=== PATIENT | male | born 1985 | race Caucasian/White ===

== ENCOUNTER 2021-04-24 06:44 | Day surgery (SDC) | payer BC ==
[2021-04-21 13:06] LABS: Basophils # (auto) 0.1 10 ^3/uL (0-0.2); Basophils % (auto) 1.3 % (0.0-2.0); Eosinophils # (auto) 0.1 10 ^3/uL (0-0.8); Eosinophils % (auto) 2.5 % (0.0-7.0); Hematocrit 46.6 % (41.0-53.0); Hemoglobin 16.3 g/dL (13.5-17.5); Lymphocytes # (auto) 1.4 10 ^3/uL (0.4-5.4); Lymphocytes % (auto) 26.3 % (10.0-50.0); Mean Corpuscular Hemoglobin 32.4 pg (28.0-32.0); Mean Corpuscular Volume 92.7 fL (80.0-100.0); Monocytes # (auto) 0.5 10 ^3/uL (0-1.3); Monocytes % (auto) 8.5 % (0.0-12.0); Neutrophils # (auto) 3.4 10 ^3/uL (1.6-8.6); Neutrophils % (auto) 61.4 % (37.0-80.0); Nucleated Red Blood Cells % 0.2 %; Red Blood Cells 5.03 10^6/uL (4.5-5.90); White Blood Cell 5.5 10^3/uL (4.4-10.8)
[2021-04-21 13:26] LABS: Urine Bacteria FEW /hpf (None Seen); Urine Blood Negative /uL (Negative); Urine Mucus FEW (None Seen); Urine Specific Gravity 1.023 (1.001-1.035); Urine WBC 1 /hpf (0 - 3)
[2021-04-21 13:35] LABS: Albumin 4.1 g/dL (3.4-5.0); Calcium 8.9 mg/dL (8.5-10.1); Potassium 3.7 mmol/L (3.5-5.1)
[2021-04-21 13:39] LABS: Bilirubin, Total 0.3 mg/dL (0.2-1.0); Total Protein 7.6 g/dL (6.4-8.2)
[~2021-04-24] VITALS: Ht 182.9 cm; Wt 83.0 kg
[2021-04-24] MEDS ORDERED: CIPROFLOXACIN 400MG/200ML 0 ML IV ONE (08:17)
[2021-04-24] MEDS ORDERED: ceFAZolin 1GM/50ML 50 ML IV ONE (08:33)
[2021-04-24] MEDS ORDERED: LIDOCAINE W/ EPINEPHRINE 1% 20ML VIAL ONE (09:04)
[2021-04-24] MEDS ORDERED: NEOMYCIN-BACITRACIN-POLYM 15GM TOP OINT TOP ONE (09:04)
[2021-04-24] MEDS ORDERED: MIDAZOLAM HCL 2MG/2ML 2ml VIAL (1mg/ml) ONE (09:16)
[2021-04-24] MEDS ORDERED: PROPOFOL 10 MG/ML 20 ML IV ONE (09:17)
[2021-04-24] MEDS ORDERED: ONDANSETRON HCL 4 MG/2 ML VIAL ONE (09:17)
[2021-04-24] MEDS ORDERED: GLYCOPYRROLATE 0.2 MG/ML 1ML VIAL ONE (09:17)
[2021-04-24] MEDS ORDERED: fentaNYL CITRATE 100 MCG/2 ML VL ONE (09:17)
[2021-04-24] MEDS ORDERED: KETOROLAC TROMETH 30 MG/ML 1ML VIAL ONE (09:17)
[2021-04-24] MEDS ORDERED: LIDOCAINE 2% (LOCAL ANESTH.) PF 5ml SDV ONE (09:17)
[2021-04-24] MEDS ORDERED: MIDAZOLAM HCL 2MG/2ML 2ml VIAL (1mg/ml) IV ONE (09:35)
[2021-04-24] MEDS ORDERED: ceFAZolin 1GM VL ONE (09:40)
[2021-04-24] MEDS ORDERED: ONDANSETRON HCL 4 MG/2 ML VIAL IV PRN (10:30)
[2021-04-24] MEDS ORDERED: HYDROmorphone HCL 2 MG/ML VL IV PRN (10:30)
[2021-04-24 10:40] VITALS: BP 135/88
== END 2021-04-24 11:10 | disposition home or self-care (01) ==
LOC: SUR 06:44
PROVIDERS: ATTEND Urology
DX: Z30.2 Encounter for sterilization (principal); Z20.822 Contact with and (suspected) exposure to COVID-19; Z98.890 Other specified postprocedural states; Z79.899 Other long term (current) drug therapy
CPT/HCPCS: 36415; 55250; 80053; 81001; 85025; 87086; 88305; J0690; J1885; J2001; J2250; J2405; J2704; J3010; U0003